=== PATIENT | female | born 1975 | race Caucasian/White ===

== ENCOUNTER 2017-10-29 21:11 | Emergency (ER) | payer MEDICAID ==
[2017-10-29] MEDS ORDERED: Acetaminophen/oxyCODONE 325-10 MG Tab PO ONE (23:04)
[2017-10-29] MEDS ORDERED: Ondansetron 4 MG Tab.DIS PO ONE (23:05)
--- NOTE | 2017-10-29 23:27 | EDM.PDOC ---
ED HPI GENERAL MEDICAL PROBLEM - General Chief Complaint: Allergic Reaction Stated Complaint: TOOTHACHE REACTION TO MEDS Time Seen by Provider: 10/29/17 21:30 Source of Information: Reports: Patient History Limitations: Reports: No Limitations - History of Present Illness INITIAL COMMENTS - FREE TEXT/NARRATIVE: She was started on amoxicillin today for dental problems and now her face is swelling. She thinks it's an allergic reaction. No sob Airway ok - Related Data Allergies Allergy/AdvReac Type Severity Reaction Status Date / Time morphine Allergy Nausea and Verified 10/29/17 21:43 Vomiting Home Meds: Home Meds DULoxetine [Cymbalta] 120 mg PO DAILY 10/29/17 [History] Ibuprofen 800 mg PO Q6H PRN 10/29/17 [History] Levothyroxine Sodium [Synthroid] 0.175 mg PO DAILY 10/29/17 [History] Lisinopril [Zestril] 10 mg PO DAILY 10/29/17 [History] Metoprolol Succinate [Toprol XL 50mg] 50 mg PO DAILY 10/29/17 [History] Pravastatin [Pravachol] 200 mg PO BID 10/29/17 [History] oxyCODONE HCl/Acetaminophen [Percocet 5-325 mg Tablet] 1 tab PO Q6H PRN [History] Past Medical History Cardiovascular History: Reports: Hypertension Genitourinary History: Reports: Urinary Incontinence [employer] History: Reports: Endometriosis Musculoskeletal History: Reports: Fibromyalgia, RA Neurological History: Reports: Migraines Endocrine/Metabolic History: Reports: Hypothyroidism - Past Surgical History GI Surgical History: Reports: Bariatric Procedure Social & Family History - Tobacco Use Smoking Status *Q: Current Every Day Smoker Years of Tobacco use: 15 Packs/Tins Daily: 0.4 Used Tobacco, but Quit: No - Caffeine Use Caffeine Use: Reports: Coffee - Recreational Drug Use Recreational Drug Use: No ED ROS ALLERGIC REACTION - Review of Systems Review Of Systems: ROS reveals no pertinent complaints other than HPI. ED EXAM GENERAL NO PERIP PULSE - Physical Exam Exam: See Below Exam Limited By: No Limitations General Appearance: Alert, WD/WN, Mild Distress Throat/Mouth: Other (visible swelling of chin, firm some areas, others fluctuant. severly tender. Carious lower incisor but no obvious dental abscesses palpable. Airway is ok. No oral swelling.) Neck: Normal Inspection Course - Vital Signs Last Recorded V/S: Last Vital Signs Temp 36.6 C 10/29/17 21:31 Pulse 81 10/29/17 21:49 Resp 14 10/29/17 21:49 BP 197/112 H 10/29/17 21:49 Pulse Ox 99 10/29/17 21:49 - Orders/Labs/Meds Orders: Active Orders 24 hr Category Date Time Status Head Neck Soft Tissue Rt [US] Stat Exams 10/29/17 22:44 Ordered Meds: Medications Discontinued Medications Generic Name Dose Route Start Last Admin Trade Name Kendell PRN Reason Stop Dose Admin Ondansetron HCl 4 mg 10/29/17 23:05 10/29/17 23:19 Zofran Odt PO 10/29/17 23:06 4 mg ONETIME ONE Administration Oxycodone/Acetaminophen 1 tab 10/29/17 23:04 10/29/17 23:18 Percocet 325-10 Mg PO 10/29/17 23:05 1 tab ONETIME ONE Administration - Re-Assessments/Exams Free Text/Narrative Re-Assessment/Exam: 10/29/17 23:25 D/w Dr Benz. Rec ENT. D/W Dr Flood oncall ent at [facility] (pt returning to [facility] in am) Recommends change to Bactrim. F/U at Urgent Care or ER tomorrow. Departure - Departure Time of Disposition: 23:27 Disposition: Home, Self-Care 01 Condition: Fair Clinical Impression: Abscess of chin - Discharge Information Referrals: PCP,None [Primary Care Provider] - Additional Instructions: Stop Amoxicillin. Instead take Bactrim DS 1 tab twice daily for 1 week. For pain use percocet 5/325 (#15) 1 or 2 every 4-6 hours. May cause sedation and impair driving. Go to the [facility] or ER in [facility]. I spoke with Dr Flood. They will decide if you need to see her or an oral surgeon. - My Orders Last 24 Hours: My Active Orders 10/29/17 22:44 Head Neck Soft Tissue Rt [US] Stat - Assessment/Plan Last 24 Hours: My Active Orders 10/29/17 22:44 Head Neck Soft Tissue Rt [US] Stat
== END 2017-10-29 23:40 | disposition home or self-care (01) ==
LOC: JP.ED 21:11
DX: L02.01 Cutaneous abscess of face (principal); F17.210 Nicotine dependence, cigarettes, uncomplicated; I10 Essential (primary) hypertension; Z79.899 Other long term (current) drug therapy; Z88.5 Allergy status to narcotic agent
CPT/HCPCS: 99283; A9270